=== PATIENT | male | born 1950 | race Caucasian/White ===

== ENCOUNTER → 2017-05-09 | Outpatient (CLI) | payer OTHER ==
[~2017-05-09] MED LIST: ALBU8.5H8 INH; ASPI325T17 PO; CHOL5000 PO; FLUO20TA25 PO; IPRA3AMP NEB; LEVO88TA4 PO; LISI-167 PO; METO25TA91 PO; MORP-52 PO; OMEP-110 PO; REGADENOSON 0.4 MG/5 ML SYRINGE ONE; SIMV10TA3 PO; TETR15DR65 EACHEYE; TIOT18CA INH; TRAZ100T15 PO; TRIA10.8 NAS; [UNRECOGNIZED DRUG - CODE] ICATH; [UNRECOGNIZED DRUG - CODE] ICATH
== END | disposition home or self-care (01) ==
LOC: CFH 10:34
PROVIDERS: ATTEND Internal Medicine Cardiovascular Disease
DX: I08.3 Combined rheumatic disorders of mitral, aortic and tricuspid valves (principal); I25.10 Atherosclerotic heart disease of native coronary artery without angina pectoris; I10 Essential (primary) hypertension; J44.9 Chronic obstructive pulmonary disease, unspecified; Z95.1 Presence of aortocoronary bypass graft
CPT/HCPCS: 93306; J2785

== ENCOUNTER → 2017-05-10 | Outpatient (CLI) | payer OTHER ==
[~2017-05-10] MED LIST changes: +AMINOPHYLLINE 25 MG/ML, 10ML ONE
== END | disposition home or self-care (01) ==
LOC: CFH 08:09
PROVIDERS: ATTEND Internal Medicine Cardiovascular Disease
DX: I25.10 Atherosclerotic heart disease of native coronary artery without angina pectoris (principal)
CPT/HCPCS: 78452; 93017; A9502; J0280; J2785

== ENCOUNTER → 2017-08-23 | Outpatient (CLI) | payer OTHER ==
[~2017-08-23] MED LIST changes: -AMINOPHYLLINE 25 MG/ML, 10ML ONE; -REGADENOSON 0.4 MG/5 ML SYRINGE ONE
== END ==
LOC: CFH 15:46
PROVIDERS: ATTEND Internal Medicine
DX: J84.89 Other specified interstitial pulmonary diseases (principal); J47.9 Bronchiectasis, uncomplicated
CPT/HCPCS: 71250

== ENCOUNTER 2018-09-08 10:06 | Inpatient (IN) | payer OTHER ==
[~2018-09-08] VITALS: Ht 175.3 cm; Wt 85.7 kg
[~2018-09-08 10:06] MED LIST changes: -IPRA3AMP NEB; +IPRA3AMP30 NEB; +TRAZ-137 PO; -TRAZ100T15 PO
[2018-09-08 10:41] LABS: BASOPHILS # (AUTO) 0.02 x10^3/uL (0-0.1); BASOPHILS % (AUTO) 0 % (0-1); EOSINOPHILS # (AUTO) 0.15 x10^3/uL (0-0.4); EOSINOPHILS % (AUTO) 1 % (1-7); LYMPHOCYTES # (AUTO) 1.59 x10^3/uL (1-3.4); LYMPHOCYTES % (AUTO) 15 % (22-44); MD NO; MEAN CORPUSCULAR HEMOGLOBIN 32.1 pg (27.5-34.5); MEAN CORPUSCULAR HGB CONC 33.4 g/dL (33.2-36.2); MEAN CORPUSCULAR VOLUME 95.9 fL (81-97); MEAN PLATELET VOLUME 9.7 fL (7.4-10.4); MONOCYTES # (AUTO) 1.29 x10^3/uL (0.2-0.8); MONOCYTES % (AUTO) 13 % (2-9); NEUTROPHILS # (AUTO) 7.26 x10^3/uL (1.8-6.8); NEUTROPHILS % (AUTO) 70 % (42-75); PLATELET COUNT 150 x10^3/uL (130-400); RED BLOOD COUNT 4.79 x10^6/uL (4.38-5.82); RED CELL DISTRIBUTION WIDTH 13.6 % (9.4-14.8)
[2018-09-08 10:49] LABS: ALBUMIN 3.9 g/dL (3.4-5.0); ANION GAP 10 mmol/L (5-15); CALCIUM 9.2 mg/dL (8.5-10.1); CHLORIDE 102 mmol/L (98-107); CREATININE 1.01 mg/dL (0.7-1.3)
[2018-09-08] MEDS ORDERED: OMNIPAQUE 350 MG/ML, 100ML BOTTLE ONE (11:57)
[2018-09-08 12:37] LABS: CLOSTRIDIUM DIFFICILE ANTIGEN NEGATIVE; CLOSTRIDIUM DIFFICILE TOXIN NEGATIVE (Negative)
--- NOTE | 2018-09-08 13:54 | NUR ---
REPORT TO RN
[2018-09-08] MEDS ORDERED: ACETAMINOPHEN 325 MG TABLET PO PRN (14:30)
[2018-09-08] MEDS ORDERED: ALBUTEROL SULFATE 2.5 MG/3 ML NPPB PRN (14:30)
[2018-09-08] MEDS ORDERED: ONDANSETRON 2MG/ML, 2ML IVPush PRN (14:30)
[2018-09-08 14:40] LABS: ALBUMIN 3.7 g/dL (3.4-5.0); BILIRUBIN, DIRECT 0.2 mg/dL (0.1-0.2); C-REACTIVE PROTEIN, QUANT 0.89 mg/dL (0.02-0.49)
[2018-09-08 14:50] LABS: BILIRUBIN,INDIRECT 0.2 mg/dL (0.0-2.0); BILIRUBIN,TOTAL 0.4 mg/dL (0.2-1.0); THYROID STIMULATING HORMONE 4.69 mIU/L (0.358-3.740); TOTAL PROTEIN 7.8 g/dL (6.4-8.2)
[2018-09-08] MEDS: DIPHENOXYLATE/ATROPINE TABLET PO PRN ×2 (15:00→20:55)
[2018-09-08] MEDS: SODIUM CHLORIDE 0.9% 1,000 ML IV SCH (15:19)
[2018-09-08] MEDS ORDERED: IPRATROPIUM 0.5 MG/2.5 ML INHA ONE (16:12)
[2018-09-08 18:41] VITALS: BP 121/73
[2018-09-08] MEDS: TRAZODONE 100MG TABLET PO SCH (20:54)
[2018-09-08] MEDS: ENOXAPARIN 40 MG/0.4 ML SQ SCH (20:54)
[2018-09-08] MEDS: SIMVASTATIN 10 MG TABLET PO SCH (20:55)
[2018-09-09] MEDS: SODIUM CHLORIDE 0.9% 1,000 ML IV SCH ×3 (00:37→20:22)
[2018-09-09 01:00] VITALS: BP 110/69
[2018-09-09 07:28] VITALS: BP 123/68
[2018-09-09] MEDS ORDERED: IPRATROPIUM 0.5 MG/2.5 ML INHA NPPB SCH (09:00)
[2018-09-09 09:04] LABS: ANION GAP 6 mmol/L (5-15); CALCIUM 8.6 mg/dL (8.5-10.1); CHLORIDE 107 mmol/L (98-107)
[2018-09-09 09:05] LABS: CREATININE 0.96 mg/dL (0.7-1.3)
[2018-09-09 09:08] LABS: BASOPHILS # (AUTO) 0.02 x10^3/uL (0-0.1); BASOPHILS % (AUTO) 0 % (0-1); EOSINOPHILS # (AUTO) 0.14 x10^3/uL (0-0.4); EOSINOPHILS % (AUTO) 2 % (1-7); LYMPHOCYTES # (AUTO) 2.13 x10^3/uL (1-3.4); LYMPHOCYTES % (AUTO) 29 % (22-44); MD NO; MEAN CORPUSCULAR HEMOGLOBIN 32.5 pg (27.5-34.5); MEAN CORPUSCULAR HGB CONC 33.6 g/dL (33.2-36.2); MEAN CORPUSCULAR VOLUME 96.6 fL (81-97); MEAN PLATELET VOLUME 9.8 fL (7.4-10.4); MONOCYTES # (AUTO) 1.22 x10^3/uL (0.2-0.8); MONOCYTES % (AUTO) 17 % (2-9); NEUTROPHILS # (AUTO) 3.79 x10^3/uL (1.8-6.8); NEUTROPHILS % (AUTO) 52 % (42-75); PLATELET COUNT 136 x10^3/uL (130-400); RED BLOOD COUNT 4.47 x10^6/uL (4.38-5.82); RED CELL DISTRIBUTION WIDTH 13.9 % (9.4-14.8)
[2018-09-09] MEDS: DIPHENOXYLATE/ATROPINE TABLET PO PRN ×2 (10:08→17:33)
[2018-09-09] MEDS: METOPROLOL SUCCINATE 25 MG TAB.ER.24H PO SCH (10:08)
[2018-09-09] MEDS: FLUOXETINE HCL 20 MG CAPSULE PO SCH (10:08)
[2018-09-09] MEDS: LISINOPRIL 10 MG TABLET PO SCH (10:08)
[2018-09-09] MEDS: LEVOTHYROXINE 88 MCG TABLET PO SCH (10:09)
[2018-09-09 12:51] VITALS: BP 92/60
[2018-09-09 18:40] VITALS: BP 125/66
[2018-09-09] MEDS: TRAZODONE 100MG TABLET PO SCH (20:21)
[2018-09-09] MEDS: SIMVASTATIN 10 MG TABLET PO SCH (20:21)
[2018-09-09] MEDS: ENOXAPARIN 40 MG/0.4 ML SQ SCH (20:22)
[2018-09-10 01:41] VITALS: BP 104/69
[2018-09-10] MEDS: SODIUM CHLORIDE 0.9% 1,000 ML IV SCH (06:20)
[2018-09-10] MEDS: LEVOTHYROXINE 88 MCG TABLET PO SCH (06:20)
[2018-09-10] MEDS: DIPHENOXYLATE/ATROPINE TABLET PO PRN ×2 (06:20→12:15)
[2018-09-10 07:17] VITALS: BP 92/55
[2018-09-10] MEDS: FLUOXETINE HCL 20 MG CAPSULE PO SCH (08:08)
[2018-09-10] MEDS: METOPROLOL SUCCINATE 25 MG TAB.ER.24H PO SCH ×2 (08:08→09:00)
[2018-09-10] MEDS: LISINOPRIL 10 MG TABLET PO SCH ×2 (08:09→09:00)
[2018-09-10 08:14] VITALS: BP 96/55
[2018-09-10 08:23] LABS: ANION GAP 5 mmol/L (5-15); CALCIUM 8.3 mg/dL (8.5-10.1); CHLORIDE 111 mmol/L (98-107); CREATININE 0.81 mg/dL (0.7-1.3)
[2018-09-10 12:37] VITALS: BP 105/62
[2018-09-10] MEDS ORDERED: LOPE2CAP94 PO (13:26)
== END 2018-09-10 14:02 | disposition home or self-care (01) | DRG 641 ==
LOC: ED 11:35 → EDIP 13:33 → 4NOR 14:30
PROVIDERS: ADMIT Internal Medicine; ATTEND Internal Medicine
DX: E86.0 Dehydration (principal); R19.7 Diarrhea, unspecified; E03.9 Hypothyroidism, unspecified; D72.829 Elevated white blood cell count, unspecified; F12.10 Cannabis abuse, uncomplicated; G89.29 Other chronic pain; M54.9 Dorsalgia, unspecified; I10 Essential (primary) hypertension; I25.10 Atherosclerotic heart disease of native coronary artery without angina pectoris; J44.9 Chronic obstructive pulmonary disease, unspecified; J84.10 Pulmonary fibrosis, unspecified; K57.30 Diverticulosis of large intestine without perforation or abscess without bleeding; Z87.891 Personal history of nicotine dependence; Z95.1 Presence of aortocoronary bypass graft; Z88.8 Allergy status to other drugs, medicaments and biological substances
CPT/HCPCS: 36415; 74177; 80048; 80076; 82040; 83735; 84443; 85025; 85651; 86140; 87046; 87252; 87324; 87427; 89055; 94640; 99285; G0378; J1650; J7644; Q9967; J7030

== ENCOUNTER 2020-08-19 12:13 | Emergency (ER) | payer OTHER ==
[~2020-08-19] VITALS: Ht 172.7 cm; Wt 95.0 kg
[~2020-08-19 12:13] MED LIST changes: +LOPE-114 PO; +SIMV10TA18 PO; -SIMV10TA3 PO; -TRAZ-137 PO; +TRAZ-175 PO
--- NOTE | 2020-08-19 13:04 | NUR ---
BREAK RN: PATIENT SITTING IN GURNEY WITH EYES CLOSED, RESP EVEN AND UNLABORED, HR 46-53, NADN, CALL LIGHT WITHIN REACH.
--- NOTE | 2020-08-19 13:24 | NUR ---
XR at bedside. lab at bedside. vss. pt resting in bed.
[2020-08-19] MEDS ORDERED: SODIUM CHLORIDE FLUSH 10ML SYR IVF ONE (13:30)
--- NOTE | 2020-08-19 13:38 | NUR ---
blood cultures and lactic acid drawn.
[2020-08-19 13:53] LABS: BASOPHILS % (AUTO) 1 % (0-1); EOSINOPHILS % (AUTO) 9 % (1-7); LYMPHOCYTES % (AUTO) 26 % (22-44); MEAN CORPUSCULAR HEMOGLOBIN 33.9 pg (27.5-34.5); MEAN CORPUSCULAR HGB CONC 33.8 g/dL (33.2-36.2); MEAN PLATELET VOLUME 8.3 fL (7.4-10.4); MONOCYTES % (AUTO) 13 % (2-9); NEUTROPHILS % (AUTO) 51 % (42-75); PLATELET COUNT 145 x10^3/uL (130-400); RED BLOOD COUNT 3.39 x10^6/uL (4.38-5.82); RED CELL DISTRIBUTION WIDTH 18.2 % (9.4-14.8)
[2020-08-19 14:05] LABS: ALBUMIN 3.1 g/dL (3.4-5.0); CALCIUM 8.3 mg/dL (8.5-10.1)
[2020-08-19 14:21] LABS: ANION GAP 2 mmol/L (5-15); CHLORIDE 101 mmol/L (98-107); INTERNATIONAL NORMALIZED RATIO 1.04 (0.93-1.1)
[2020-08-19 14:37] LABS: ALANINE AMINOTRANSFERASE 17 U/L (12-78); ALKALINE PHOSPHATASE 72 U/L (45-117); BILIRUBIN,TOTAL 0.5 mg/dL (0.2-1.0); CREATININE 1.31 mg/dL (0.7-1.3); TOTAL PROTEIN 7.1 g/dL (6.4-8.2); TROPONIN I < 0.015 ng/mL (0.000-0.045)
[2020-08-19 14:52] LABS: FREE T4 (FREE THYROXINE) 0.13 ng/dL (0.76-1.46)
[2020-08-19 15:05] LABS: MD SCAN
[2020-08-19 15:14] VITALS: BP 142/67
--- NOTE | 2020-08-19 15:17 | NUR ---
PLACED CALLED TO [facility] TO GET MORE INFORMATION ON MEDICATIONS. WAITING FOR A CALL BACK FROM THE CUT PRESS OPERATOR NURSE.
--- NOTE | 2020-08-19 15:55 | NUR ---
spoke with who manages all pt medications. she states pt no longer takes his thyroid medication and recently (past 6mo)has had changes from his heart doctor.
[2020-08-19] MEDS ORDERED: LEVOTHYROXINE 75 MCG TABLET PO ONE (16:30)
== END 2020-08-19 18:01 | disposition home or self-care (01) ==
LOC: ED 14:07
DX: R00.1 Bradycardia, unspecified (principal); R07.89 Other chest pain; E03.9 Hypothyroidism, unspecified; I10 Essential (primary) hypertension; Z87.891 Personal history of nicotine dependence
CPT/HCPCS: 36415; 71045; 80053; 83605; 84145; 84439; 84443; 84484; 85025; 85610; 85730; 93005; 99283